=== PATIENT | male | born 1930 | race Caucasian/White ===

== ENCOUNTER 2019-02-09 09:30 | Observation (INO) ==
--- NOTE | 2019-02-09 10:02 | ERNOTE ---
Dyspnea - General Presenting Symptoms: shortness of breath Time Seen by Provider: 02/09/19 09:47 Source: patient Exam Limitations: no limitations - Immun/Allergies/Home Medications Allergies/Adverse Reactions: Allergies No Known Allergies Allergy (Unverified 10/31/15 12:51) Home Medications: HOME MEDICATIONS Albuterol Sulfate [Proair Hfa] 2 puff IH Q4H PRN 10/31/15 [Last Taken Unknown] Aspirin [Aspirin Enteric Coated] 81 mg PO DAILY 10/31/15 [Last Taken Unknown] Atorvastatin Calcium [Lipitor] 40 mg PO HS 10/31/15 [Last Taken Unknown] Blood Sugar Diagnostic, Drum [Accu-Chek Compact] 1 each MC BID 10/31/15 [Last Taken Unknown] Budesonide/Formoterol Fumarate [Symbicort 160-4.5 Mcg Inhaler] 2 puff IH BID 10/31/15 [Last Taken Unknown] Cyanocobalamin (Vitamin B-12) [Vitamin B-12] 1,000 mcg SL DAILY 10/31/15 [Last Taken Unknown] Doxazosin Mesylate [Cardura] 8 mg PO DAILY 10/31/15 [Last Taken Unknown] Finasteride [Proscar] 5 mg PO DAILY 10/31/15 [Last Taken Unknown] Furosemide [Lasix] 40 mg PO DAILY 10/31/15 [Last Taken Unknown] Levothyroxine Sodium [Synthroid] 125 mcg PO DAILY 10/31/15 [Last Taken Unknown] Multivitamins [Multivitamin Elisabeth] 1 cap PO DAILY 10/31/15 [Last Taken Unknown] amLODIPine BESYLATE [Norvasc] 10 mg PO DAILY 10/31/15 [Last Taken Unknown] metFORMIN HCL [Glumetza] 1,000 mg PO QPM 10/31/15 [Last Taken Unknown] Omeprazole [Prilosec] 20 mg PO DAILY 02/09/19 [Last Taken Unknown] - History of Present Illness Narrative: Patient states overnight he was feeling more of breath than his usual. His oxygen level was in the mid 80s. His morning he did take nebulized and inhaled medications and is feeling somewhat better at this time. SaO2 is low 90% and pt and family state that is normal for him. He also had a nosebleed last night they had some difficulty in stopping it but did stop with direct pressure. 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 Denies: fever/chills, chest pain/discomfort Review of Systems - Review of Systems Constitutional: Absent: recent illness, fever ENT: Present: See HPI Respiratory: Present: shortness of breath - No more than usual at this time. , orthopnea Cardiology: Absent: chest pain Gastrointestinal/Abdominal: Absent: nausea, vomiting Genitourinary: Absent: pain, dysuria Musculoskeletal: Absent: back pain, muscle pain Endocrine: Absent: excessive sweating Medical History (Updated 02/09/19 @ 11:35 by Franco Sharma DO) CHF (congestive heart failure) COPD (chronic obstructive pulmonary disease) Diabetes High blood pressure Hyperthyroidism Surgical History: Surgical History (Updated 02/09/19 @ 11:10 by Terri Aragon RN) History of coronary artery bypass surgery Hx of cholecystectomy Hx of thymectomy Social History: Preferred Language Lebanese Smoking Status Former smoker Have you smoked in the past 12 No months Do you dip or chew tobacco No Alcohol Use none Drug Use none No Social History Section defined Physical Exam - Physical Exam General Appearance: Present: wd/wn, alert, no apparent distress Head Exam: Present: normal inspection, no evidence of injury Ears, Nose, Throat: Present: nasal congestion - Bilateral with nasal septal deviation to the right. Left nare has a well adhered clot to the septum anteriorly. No active bleeding noted. Neck: Present: normal inspection, nontender Respiratory: Present: no respiratory distress, decreased breath sounds, expiration (prolonged) Cardiovascular/Chest: Present: no murmur, tachycardia Back Exam: Present: normal inspection, no vertebral tenderness Extremity Exam: Present: pedal edema - +2 Neurological Exam: Present: alert, oriented, normal mood/affect, no motor/sensory deficits Skin Exam: Present: normal color, warm/dry Progress - Results and Orders Patient's Lab Results:: I have reviewed the patient's lab results. Results and Orders: Laboratory Tests 02/09/19 02/09/19 10:09 10:09 WBC 3.0 L Hgb 10.2 L Hct 32.9 L Plt Count 157 Sodium 142 Potassium 3.9 Anion Gap 14.4 H BUN 16 Creatinine 1.14 Random Glucose 141 H Calcium 9.4 Total Bilirubin 0.9 AST 18 ALT 17 L B-Natriuretic Peptide 3755 H - Vital Signs Patient's Vital Signs:: I have reviewed the patient's vital signs. Vital Signs: Vital Signs 02/09/19 09:35 Temperature 36.5 C Pulse Rate 104 H Respiratory Rate 22 H Blood Pressure 110/47 O2 Sat by Pulse Oximetry 91 L - X-Ray X-Ray #1 X-Ray: chest Interpretation: Reviewed by me X-ray Comments: IMPRESSION: 1. Pulmonary vascular congestion/interstitial edema suggested. Trace bilateral pleural fluid. 2. Mild cardiomegaly. Status post CABG. 3. Emphysematous changes suggested. Electronically signed by Juan Antonio Angeles M.D.. - Progress/Reassessment Chief Complaint: Dyspnea Progress:: Improved Progress Note-Subjective: 02/09/19 11:[address] Can he agrees with admission. Departure Clinical Impression: CHF (congestive heart failure) Qualifiers: Heart failure type: diastolic Heart failure chronicity: acute on chronic Qualified Code(s): I50.33 - Acute on chronic diastolic (congestive) heart failure COPD (chronic obstructive pulmonary disease) Qualifiers: COPD type: unspecified COPD Qualified Code(s): J44.9 - Chronic obstructive pulmonary disease, unspecified - Departure Disposition: Still a patient Condition: Fair
[2019-02-09 10:15] LABS: Hematocrit 32.9 % (42.0-52.0); Hemoglobin 10.2 gm/dL (13.5-18.0); Mean Corpuscular Hemoglobin 27.3 pg (27-31); Mean Platelet Volume 10.1 fl (8-11.3); Neutrophil # 2.2 K/mm3 (1.3-6.0); Platelet Count 157 K/mm3 (150-450); Red Blood Count 3.74 M/mm3 (4.7-6.0); Red Cell Distribution Width 17.1 % (11.5-14.0)
[2019-02-09 10:34] LABS: Albumin * 2.9 gm/dl (3.4-5.0); Anion Gap 14.4 mmol/L (6.8-13.8); Bilirubin, Total 0.9 mg/dL (0.0-1.1); Calcium * 9.4 mg/dL (7.9-10.9); Carbon Dioxide 29.5 mmol/L (24-32.6); Potassium 3.9 mmol/L (3.4-4.6); Total Protein 6.8 gm/dL (6.2-8.2)
[2019-02-09] MEDS ORDERED: FUROSEMIDE 10 MG/ML VIAL IV ONE (11:14)
[2019-02-09] MEDS ORDERED: ALBUTEROL SULFATE 2.5 MG/0.5 ML VIAL.NEB IH PRN (12:58)
[2019-02-09] MEDS: METHYLPREDNISOLONE SOD SUCC/PF 40 MG/ML VIAL IV SCH (13:28)
[2019-02-09] MEDS: ALBUTEROL SULFATE/IPRATROPIUM 3 ML NEBU IH SCH ×3 (13:31→18:33)
[2019-02-09 13:47] LABS: Iron 21 mcg/dL (35-120); Transferrin Sat. (% Sat.) 8 % (15-55)
--- NOTE | 2019-02-09 19:50 | HP ---
Chief Complaint - Chief Complaint Date of Service: 02/09/19 Time of Service: 12:30 Chief Complaint: SOB, DYSPNEA @ REST History of Present Illness: Pierre Santos is an 88-year-old male admitted through emergency room with chief complaint of dyspnea at rest and marked dyspnea with activity. He has a long-standing history of COPD and is oxygen dependent at home. He has a nebulizer at home and does nebulizer treatments but he could not improve with home therapy and came to the emergency room. The ER evaluation shows probable mild congestive heart failure with increased pulmonary vascular congestion and an elevated BNP. He was diuresed some in the emergency room but did not give up a lot of fluid today. He has been getting breathing treatments with ipratropium bromide and albuterol and is also received IV steroids today. This evening he is feeling much better breathing easier was able to walk from his chair to the bathroom and back without becoming dyspneic on room air. At present he is having oxygen saturations of 95%. There is no evidence of infection so antibiotics have not been started. Medical History (Updated 02/09/19 @ 11:35 by Franco Sharma DO) CHF (congestive heart failure) COPD (chronic obstructive pulmonary disease) Diabetes High blood pressure Hyperthyroidism Surgical History: Surgical History (Updated 02/09/19 @ 11:10 by Terri Aragon RN) History of coronary artery bypass surgery Hx of cholecystectomy Hx of thymectomy Family History: Family History (Updated 02/09/19 @ 13:04 by Ana Doll RN) Mother Pancreatic cancer Social History: Patient Lives/Resources With Spouse Utilized Preferred Language Kiswahili Do you have any holiness or No cultural preference? Smoking Status Former smoker Have you smoked in the past 12 No months Do you dip or chew tobacco No Alcohol Use none Drug Use none No Social History Section defined Review Of Systems (GEN) - Review of Systems Generalized/Overall Review: Present: Weakness, Weight loss EENTM: Present: No Symptoms Reported Respiratory: Present: Shortness of Breath, Orthopnea, Wheezing Cardiac: Present: Palpitations Abdominal: Present: No Symptoms Reported Genitourinary: Present: No Symptoms Reported Musculoskeletal: Present: No Symptoms Reported Neurological: Present: No Symptoms Reported Skin: Present: No Symptoms Reported Endocrine: Present: No Symptoms Reported Allergies/Adverse Reactions: Allergies Allergy/AdvReac Type Severity Reaction Status Date / Time No Known Allergies Allergy Verified 02/09/19 12:59 Home Medications: HOME MEDICATIONS Albuterol Sulfate [Proair Hfa] 2 puff IH Q4H PRN 10/31/15 [Last Taken Unknown] Aspirin [Aspirin Enteric Coated] 81 mg PO DAILY 10/31/15 [Last Taken Unknown] Atorvastatin Calcium [Lipitor] 40 mg PO HS 10/31/15 [Last Taken Unknown] Blood Sugar Diagnostic, Drum [Accu-Chek Compact] 1 each MC BID 10/31/15 [Last Taken Unknown] Budesonide/Formoterol Fumarate [Symbicort 160-4.5 Mcg Inhaler] 2 puff IH BID 10/31/15 [Last Taken Unknown] Cyanocobalamin (Vitamin B-12) [Vitamin B-12] 1,000 mcg SL DAILY 10/31/15 [Last Taken Unknown] Doxazosin Mesylate [Cardura] 8 mg PO DAILY 10/31/15 [Last Taken Unknown] Finasteride [Proscar] 5 mg PO HS 10/31/15 [Last Taken Unknown] Furosemide [Lasix] 40 mg PO DAILY 10/31/15 [Last Taken Unknown] Levothyroxine Sodium [Synthroid] 125 mcg PO DAILY 10/31/15 [Last Taken Unknown] Multivitamins [Multivitamin Elisabeth] 1 cap PO DAILY 10/31/15 [Last Taken Unknown] amLODIPine BESYLATE [Norvasc] 10 mg PO DAILY 10/31/15 [Last Taken Unknown] metFORMIN HCL [Glumetza] 1,000 mg PO HS 10/31/15 [Last Taken Unknown] Omeprazole [Prilosec] 20 mg PO DAILY 02/09/19 [Last Taken Unknown] Exam - Exam Vital Signs: Vital Signs - Last Taken Temp 36.4 C 02/09/19 18:34 Pulse 83 02/09/19 18:43 Resp 16 02/09/19 18:43 BP 115/59 02/09/19 18:34 Pulse Ox 93 02/09/19 18:34 Constitutional: Present: Alert, Oriented x3, Cooperative, Well developed, Elderly, Thin and frail ENT Exam: Present: normal ENT inspection, hearing grossly normal, pharynx normal Eye Exam: bilateral eye: normal inspection, PERRL, EOMI Neck: Present: non-tender, full range of motion, supple, normal inspection Back Exam: Present: normal inspection, no CVA tenderness, no vertebral tenderness Breasts: Present: Exam deferred Respiratory: Present: decreased breath sounds, rales, rhonchi, wheezing, expiration (prolonged) Cardiovascular/Chest: Present: normal peripheral pulses, no chest tenderness, no edema, tachycardia, irregularly irregular Peripheral Pulses: carotid (R): 2+, carotid (L): 2+, radial (R): 2+, radial (L): 2+ Abdomen: Present: Normal bowel sounds, soft, nontender, nondistended, no rebound tenderness, no hepatospenomegaly, no masses /Rectal: Present: Exam deferred Extremity: Present: normal range of motion, non-tender, normal inspection, no pedal edema, no calf tenderness, normal capillary refill Skin Exam: Present: normal color, warm/dry, no cyanosis - When on oxygen Lymphatic: Present: no adenopathy 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 Appearance: Present: appropriate appearance, appropriate insight, neat, no memory impairment Eye contact: Present: cooperative, good eye contact, normal speech Thoughts: Present: normal thought pattern, no apparent hallucination Diagnostic Studies: Abnormal Lab Results 02/09/19 02/09/19 02/09/19 Range/Units 10:09 10:09 10:09 WBC 3.0 L (4.0-10.5) K/mm3 RBC 3.74 L (4.7-6.0) M/mm3 Hgb 10.2 L (13.5-18.0) gm/dL Hct 32.9 L (42.0-52.0) % MCHC 31.0 L (32-36) g/dl RDW 17.1 H (11.5-14.0) % Lymphocytes % 10.0 L (20-51) % Monocytes % 10.7 H (0.0-9) % Eosinophils % 4.7 H (0.0-3.0) % Lymphocytes # 0.30 L (1.5-3.5) k/mm3 Plasma Sodium 143 H (130-142) mmol/L Anion Gap 14.4 H (6.8-13.8) mmol/L Random Glucose 141 H (70-110) mg/dL Iron 21 L (35-120) mcg/dL TIBC 251 L (260-445) mcg/dL Transferrin % Sat 8 L (15-55) % ALT 17 L (19-67) U/L B-Natriuretic Peptide 3755 H (5-650) pg/mL Albumin 2.9 L (3.4-5.0) gm/dl Laboratory Results WBC 3.0 K/mm3 (4.0-10.5) L 02/09/19 10:09 RBC 3.74 M/mm3 (4.7-6.0) L 02/09/19 10:09 Hgb 10.2 gm/dL (13.5-18.0) L 02/09/19 10:09 Hct 32.9 % (42.0-52.0) L 02/09/19 10:09 MCV 88.0 fl (78-100) 02/09/19 10:09 MCH 27.3 pg (27-31) 02/09/19 10:09 MCHC 31.0 g/dl (32-36) L 02/09/19 10:09 RDW 17.1 % (11.5-14.0) H 02/09/19 10:09 Plt Count 157 K/mm3 (150-450) 02/09/19 10:09 MPV 10.1 fl (8-11.3) 02/09/19 10:09 Immature Gran % (Auto) 0.30 % (0.001-0.429) 02/09/19 10:09 Immature Gran # (Auto) 0.01 K/mm3 (0.000-0.0310) 02/09/19 10:09 74.0 % (42-75.0) 02/09/19 10:09 10.0 % (20-51) L 02/09/19 10:09 10.7 % (0.0-9) H 02/09/19 10:09 4.7 % (0.0-3.0) H 02/09/19 10:09 0.3 % (0.0-1.0) 02/09/19 10:09 Nucleated RBC % 0.0 k/mm3 (0-1) 02/09/19 10:09 2.2 K/mm3 (1.3-6.0) 02/09/19 10:09 0.30 k/mm3 (1.5-3.5) L 02/09/19 10:09 0.3 k/mm3 (0.0-1.0) 02/09/19 10:09 0.1 k/mm3 (0.0-0.7) 02/09/19 10:09 Absolute Basophils 0.0 k/mm3 (0.0-0.1) 02/09/19 10:09 Sodium 142 mmol/L (132-142) 02/09/19 10:09 143 mmol/L (130-142) H 02/09/19 10:09 Potassium 3.9 mmol/L (3.4-4.6) 02/09/19 10:09 Chloride 102 mmol/L (97-106) 02/09/19 10:09 Carbon Dioxide 29.5 mmol/L (24-32.6) 02/09/19 10:09 14.4 mmol/L (6.8-13.8) H 02/09/19 10:09 BUN 16 mg/dL (6-23) 02/09/19 10:09 1.14 mg/dL (0.4-1.4) 02/09/19 10:09 Est GFR (Non-Af Amer) 64 mL/min (60-130) 02/09/19 10:09 14.0 (9.0-21.6) 02/09/19 10:09 141 mg/dL (70-110) H 02/09/19 10:09 Calcium 9.4 mg/dL (7.9-10.9) 02/09/19 10:09 Calcium Adj for Albumin 10.0 mg/dL (8.4-10.2) 02/09/19 10:09 Iron 21 mcg/dL (35-120) L 02/09/19 10:09 TIBC 251 mcg/dL (260-445) L 02/09/19 10:09 Transferrin % Sat 8 % (15-55) L 02/09/19 10:09 120 ng/mL (26-388) 02/09/19 10:09 0.9 mg/dL (0.0-1.1) 02/09/19 10:09 AST 18 U/L (0-48) 02/09/19 10:09 ALT 17 U/L (19-67) L 02/09/19 10:09 95 U/L (50-170) 02/09/19 10:09 Less than 0.017 ng/mL (0.00-0.10) 02/09/19 10:14 B-Natriuretic Peptide 3755 pg/mL (5-650) H 02/09/19 10:09 6.8 gm/dL (6.2-8.2) 02/09/19 10:09 2.9 gm/dl (3.4-5.0) L 02/09/19 10:09 Assessment/Plan - Narrative Narrative: 1. Diurese 2. RT treatments every 4 hours with DuoNeb 3. Solu-Medrol IV piggyback 4. Continue to monitor through the night or oxygen desaturations while sleeping 5. Anticipate discharge tomorrow. - Assessment/Plan (1) Hypothyroid Problem: Acute (2) CHF (congestive heart failure) Problem: Acute Qualifiers: Heart failure type: diastolic Heart failure chronicity: acute on chronic Qualified Code(s): I50.33 - Acute on chronic diastolic (congestive) heart failure (3) COPD (chronic obstructive pulmonary disease) Problem: Acute Qualifiers: COPD type: unspecified COPD Qualified Code(s): J44.9 - Chronic obstructive pulmonary disease, unspecified
[2019-02-09] MEDS: FLUTICASONE PROPION/SALMETEROL 14 PUFF DISK.W.DEV IH SCH (20:29)
[2019-02-09] MEDS: FUROSEMIDE 10 MG/ML VIAL IV SCH (21:01)
[2019-02-10 05:50] LABS: Hematocrit 31.6 % (42.0-52.0); Hemoglobin 9.9 gm/dL (13.5-18.0); Mean Cell Volume 87.8 fl (78-100); Mean Corpuscular Hemoglobin 27.5 pg (27-31); Mean Corpuscular Hgb Conc 31.3 g/dl (32-36); Neutrophil # 2.3 K/mm3 (1.3-6.0); Neutrophil % 86.9 % (42-75.0); Platelet Count 166 K/mm3 (150-450); White Blood Count 2.6 K/mm3 (4.0-10.5)
[2019-02-10 05:57] LABS: Albumin * 2.9 gm/dl (3.4-5.0); Anion Gap 15.4 mmol/L (6.8-13.8); BUN/Creatinine Ratio 19.2 (9.0-21.6); Bilirubin, Total 0.6 mg/dL (0.0-1.1); Ca. Corrected For Albumin 9.9 mg/dL (8.4-10.2); Calcium * 9.3 mg/dL (7.9-10.9); Carbon Dioxide 26.8 mmol/L (24-32.6); Potassium 4.2 mmol/L (3.4-4.6); Total Protein 6.7 gm/dL (6.2-8.2)
[2019-02-10 06:14] LABS: Hemoglobin A1C 7.9 % (4.00-6.0)
[2019-02-10] MEDS ORDERED: PANTOPRAZOLE SODIUM 20 MG TABLET.DR PO SCH (07:00)
[2019-02-10] MEDS ORDERED: LEVOTHYROXINE SODIUM 125 MCG TABLET PO SCH (07:00)
[2019-02-10] MEDS: ALBUTEROL SULFATE/IPRATROPIUM 3 ML NEBU IH SCH ×2 (07:05→10:45)
[2019-02-10] MEDS: FLUTICASONE PROPION/SALMETEROL 14 PUFF DISK.W.DEV IH SCH (08:45)
[2019-02-10] MEDS: METHYLPREDNISOLONE SOD SUCC/PF 40 MG/ML VIAL IV SCH (08:46)
[2019-02-10] MEDS: FUROSEMIDE 10 MG/ML VIAL IV SCH (08:47)
[2019-02-10] MEDS ORDERED: FINASTERIDE 5 MG TABLET PO SCH (09:00)
[2019-02-10] MEDS ORDERED: FERROUS SULFATE 325 MG TABLET PO SCH (09:00)
[2019-02-10] MEDS ORDERED: ASPIRIN 81 MG TABLET.DR PO SCH (09:00)
[2019-02-10] MEDS ORDERED: amLODIPine BESYLATE 10 MG TABLET PO SCH (09:00)
[2019-02-10] MEDS ORDERED: DOXAZOSIN MESYLATE 2 MG TABLET PO SCH (09:00)
--- NOTE | 2019-02-10 11:55 | DS ---
(1) CHF (congestive heart failure) Problem: Acute Qualifiers: Heart failure type: diastolic Heart failure chronicity: acute on chronic Qualified Code(s): I50.33 - Acute on chronic diastolic (congestive) heart failure (2) COPD (chronic obstructive pulmonary disease) Problem: Acute Qualifiers: COPD type: unspecified COPD Qualified Code(s): J44.9 - Chronic obstructive pulmonary disease, unspecified (3) Hypothyroid Problem: Acute Qualifiers: Hypothyroidism type: acquired Qualified Code(s): E03.9 - Hypothyroidism, unspecified Description of Stay: Pierre Santos is an 88-year-old male admitted through ER and congestive heart failure and having some exacerbation of COPD. He was given breathing treatments in the emergency room and has continued them every 4 hours. He is breathing much easier today and was breathing much easier by yesterday evening. He believes that the inhalation solutions were using here are working better for him than those he has had home. On admission he was dyspneic and tachypneic and had bibasilar rales. He had diminished breath sounds bilaterally and some expiratory wheezes. With diuresis and breathing treatments his lungs have cleared although breath sounds remain distant because of his COPD. The neck veins were initially distended and had a positive hepatojugular reflex but I do not detect that today. He could not walk across the room with his oxygen on without becoming dyspneic on admission and he has walked to the bathroom several times without his oxygen and not become dyspneic. He is responded very well to therapy and should do well at home. Procedures Performed: none Results and Findings: Pending Mircobiology Results 02/09/19 10:56 Blood Blood Culture - Preliminary NO GROWTH 24 HOURS 02/09/19 10:09 Blood Blood Culture - Preliminary NO GROWTH 24 HOURS Lab Pending Results 02/09/19 10:09: WBC 3.0 L, RBC 3.74 L, Hgb 10.2 L, Hct 32.9 L, MCV 88.0, MCH 27.3, MCHC 31.0 L, RDW 17.1 H, Plt Count 157, MPV 10.1, Immature Gran % (Auto) 0.30, Immature Gran # (Auto) 0.01, Neutrophils % 74.0, Lymphocytes % 10.0 L, Monocytes % 10.7 H, Eosinophils % 4.7 H, Basophils % 0.3, Nucleated RBC % 0.0, Neutrophils # 2.2, Lymphocytes # 0.30 L, Monocytes # 0.3, Eosinophils # 0.1, Absolute Basophils 0.0 02/09/19 10:09: Sodium 142, Plasma Sodium 143 H, Potassium 3.9, Chloride 102, Carbon Dioxide 29.5, Anion Gap 14.4 H, BUN 16, Creatinine 1.14, Est GFR (Non-Af Amer) 64, BUN/Creatinine Ratio 14.0, Random Glucose 141 H, Calcium 9.4, Calcium Adj for Albumin 10.0, Total Bilirubin 0.9, AST 18, ALT 17 L, Alkaline Phosphatase 95, B-Natriuretic Peptide 3755 H, Total Protein 6.8, Albumin 2.9 L 02/09/19 10:09: Ferritin 120 02/09/19 10:09: Iron 21 L, TIBC 251 L, Transferrin % Sat 8 L 02/09/19 10:14: Troponin I Less than 0.017 02/10/19 05:35: Mean Blood Glucose 177, Hemoglobin A1c 7.9 H 02/10/19 05:35: WBC 2.6 L, RBC 3.60 L, Hgb 9.9 L, Hct 31.6 L, MCV 87.8, MCH 2 7.5, MCHC 31.3 L, RDW 17.0 H, Plt Count 166, MPV 11.0, Immature Gran % (Auto) 0.40, Immature Gran # (Auto) 0.01, Neutrophils % 86.9 H, Lymphocytes % 6.9 L, Monocytes % 5.4, Eosinophils % 0.4, Basophils % 0.0, Nucleated RBC % 0.0, Neutrophils # 2.3, Lymphocytes # 0.18 L, Monocytes # 0.1, Eosinophils # 0.0, Absolute Basophils 0.0 02/10/19 05:35: Sodium 139, Plasma Sodium 140, Potassium 4.2, Chloride 101, Carbon Dioxide 26.8, Anion Gap 15.4 H, BUN 24 H, Creatinine 1.25, Est GFR (Non- Af Amer) 58 L, BUN/Creatinine Ratio 19.2, Random Glucose 158 H, Calcium 9.3, Calcium Adj for Albumin 9.9, Total Bilirubin 0.6, AST 17, ALT 17 L, Alkaline Phosphatase 94, Total Protein 6.7, Albumin 2.9 L 02/10/19 06:21: Stool Occult Blood Negative Discharge Location: Home Disposition: Home self-care Condition: Fair Face to Face Encounter completed per CMS Guidelines: No Discharge Activity: Activity as tolerated Discharge Diet: Low salt Referrals: Geremias Martines MD [Primary Care Provider] - Additional Patient Instructions (free text): [facility] and he will call and schedule his own appointment. Rx is for new nebulizer treatments and a Maryjo are provided. If need be I would be glad to see him in the office for follow- up. Complete Home Medications List: Complete Home Medication List: Albuterol Sulfate [Proair Hfa] 2 puff IH Q4H PRN 10/31/15 Aspirin [Aspirin Enteric Coated] 81 mg PO DAILY 10/31/15 Atorvastatin Calcium [Lipitor] 40 mg PO HS 10/31/15 Blood Sugar Diagnostic, Drum [Accu-Chek Compact Plus Strips] 1 each MC BID 10/31/15 Budesonide/Formoterol Fumarate [Symbicort 160-4.5 Mcg Inhaler] 2 puff IH BID 10/31/15 Cyanocobalamin (Vitamin B-12) [Vitamin B-12] 1,000 mcg SL DAILY 10/31/15 Doxazosin Mesylate [Cardura] 8 mg PO DAILY 10/31/15 Finasteride [Proscar] 5 mg PO HS 10/31/15 Furosemide [Lasix] 40 mg PO DAILY 10/31/15 Levothyroxine Sodium [Synthroid] 125 mcg PO DAILY 10/31/15 Multivitamins [Multivitamin Elisabeth] 1 cap PO DAILY 10/31/15 amLODIPine BESYLATE [Norvasc] 10 mg PO DAILY 10/31/15 metFORMIN HCL [Glumetza] 1,000 mg PO HS 10/31/15 Omeprazole [Prilosec] 20 mg PO DAILY 02/09/19 Albuterol Sulfate [Albuterol Sulfate 2.5 MG/0.5ML] 2.5 mg IH Q4H PRN vial.neb 02/10/19 Albuterol Sulfate/Ipratropium [Duoneb 2.5-0.5MG/3ML Soln] 3 ml INHALATION QIDRT #120 nebu 02/10/19 Ferrous Sulfate 325 mg PO DAILY tablet 02/10/19 predniSONE [Prednisone] 5 mg PO DAILY #30 tab 02/10/19
--- NOTE | 2019-02-10 13:17 | ECHO ---
This report is available in the EMR
[2019-02-10 13:47] VITALS: BP 108/55
[2019-02-10] MEDS ORDERED: FUROSEMIDE 10 MG/ML VIAL IV SCH (21:00)
== END 2019-02-10 13:30 | disposition home or self-care (01) ==
LOC: ER 09:30 → INTOOBSV 11:47 → MS 11:47
PROVIDERS: ADMIT Family Medicine; ATTEND Family Medicine
CPT/HCPCS: 36415; 71020; 71046; 80053; 82272; 82728; 83036; 83519; 83540; 83550; 83880; 84484; 85025; 87040; 93005; 93306; 94640; 94664; 94760; 96374; 96375; 99285; G0378